=== PATIENT | female | born 2000 | race Two or more races ===

== ENCOUNTER 2019-05-10 18:54 | Emergency (ER) | payer MEDICAID ==
[~2019-05-10] VITALS: Ht 157.5 cm; Wt 77.1 kg
[2019-05-10] MEDS ORDERED: ACETAMINOPHEN/CODEINE#3 (300/30mg) TAB PO ONE (19:45)
[2019-05-10] MEDS ORDERED: BACLOFEN 10 MG TAB PO ONE (19:45)
[2019-05-10 20:30] VITALS: BP 117/69
== END 2019-05-10 20:44 | disposition home or self-care (01) ==
LOC: ER 18:57
DX: S13.4XXA Sprain of ligaments of cervical spine, initial encounter (principal); M62.838 Other muscle spasm; V43.62XA Car passenger injured in collision with other type car in traffic accident, initial encounter; Y93.89 Activity, other specified; Y92.488 Other paved roadways as the place of occurrence of the external cause; Y99.8 Other external cause status